=== PATIENT | female | born 1960 | race Caucasian/White ===

== ENCOUNTER 2023-03-05 05:55 | Emergency (ER) | payer BC ==
[2023-03-05] MEDS ORDERED: DEXAMETHASONE LIQUID 0.5 MG/5 ML PO ONE (06:03)
[2023-03-05] MEDS ORDERED: ACETAMINOPHEN 325 MG TABLET (FP) PO ONE (06:03)
[2023-03-05] MEDS ORDERED: PENICILLIN G BENZATHINE 1,200,000 UNIT/2 ML PFS IM ONE (06:10)
[2023-03-05 06:11] VITALS: BP 142/74; PULSE 85; RESP 18; BMI 22.3
[2023-03-05] MEDS ORDERED: AMOXICILLIN 500 MG CAPSULE (FP) PO ONE (06:12)
[2023-03-05] MEDS ORDERED: AMOXICILLIN 250 MG CAPSULE ONE (06:16)
[2023-03-05] MEDS ORDERED: DEXAMETHASONE SOD PHOSPHATE 4 MG/1 ML VIAL ONE (06:16)
[2023-03-05] MEDS ORDERED: ACETAMINOPHEN 325 MG TABLET (FP) ONE (06:16)
[2023-03-05 07:32] VITALS: TEMP 100.6
== END 2023-03-05 07:42 | disposition home or self-care (01) ==
LOC: FER 05:55
DX: J02.9 Acute pharyngitis, unspecified (principal); R50.9 Fever, unspecified; R09.89 Other specified symptoms and signs involving the circulatory and respiratory systems; Z20.822 Contact with and (suspected) exposure to COVID-19
CPT/HCPCS: 0241U-QW; 87651; 99283-25

== ENCOUNTER 2023-04-01 11:01 | Emergency (ER) | payer BC ==
[2023-04-01 12:04] VITALS: BP 141/57; PULSE 62; RESP 18; TEMP 99; BMI 22.3
== END 2023-04-01 12:15 | disposition home or self-care (01) ==
LOC: FER 11:01
DX: R05.9 Cough, unspecified (principal); U07.1 COVID-19
CPT/HCPCS: 0241U-QW; 71046-TC-FY; 99284-25